=== PATIENT | female | born 1990 | race Caucasian/White ===

== ENCOUNTER 2016-04-03 | Emergency (ER) | payer OTHER | END 2016-04-03 07:27 | disposition home or self-care (01) ==

== ENCOUNTER 2017-12-08 21:38 | Emergency (ER) | payer OTHER ==
[2017-12-08] MEDS ORDERED: LIDOCAINE 2% 10 ML MDV SUBQ STA (21:58)
--- NOTE | 2017-12-08 22:14 | ED Physician Documentation ---
PD HPI UPPER EXT INJURY - Stated complaint Stated Complaint: R HAND LAC - Chief complaint Chief Complaint: Laceration - History obtained from History obtained from: Patient - History of Present Illness Location: Right, Finger (4th) Where injury occurred: Work Timing - onset: How many hours ago (1) Timing - duration: Hours (1) Timing - details: Abrupt onset Pain level max: 7 Pain level now: 7 Improved by: Rest, Ice, Immobilization Worsened by: Moving, Palpating Associated symptoms: Swelling, Discolored (ecchymosis). No: Weakness, Numbness, Tingling - Additonal information Additional information: Patient states she is wearing a ring on her right fourth digit when it became caught on a bolt at work and broke the ring off of her finger. Tetanus is up-to-date Review of Systems : denies: Now EGA Skin: denies: Rash Musculoskeletal: denies: Neck pain, Back pain Neurologic: denies: Headache PD PAST MEDICAL HISTORY - Past Medical History Past Medical History: No Cardiovascular: None Respiratory: None Neuro: None Endocrine/Autoimmune: None GI: None GERIATRIC PERSONAL CARE AIDE: None : None HEENT: None Psych: None Musculoskeletal: None Derm: None - Past Surgical History Past Surgical History: Yes General: Appendectomy HEENT: Tonsil/Adenoidectomy - Present Medications Home Medications: Ambulatory Orders Medication Instructions Recorded Confirmed cephALEXin [Cephalexin] 500 mg PO TID #20 tablet 04/03/16 - Allergies Allergies/Adverse Reactions: Allergies Allergy/AdvReac Type Severity Reaction Status Date / Time No Known Drug Allergies Allergy Verified 12/08/17 21:45 - Social History Does the pt smoke?: Yes Smoking Status: Current every day smoker Does the pt drink ETOH?: Yes Does the pt have substance abuse?: No - Immunizations Immunizations are current?: Yes - POLST Patient has POLST: No PD ED PE NORMAL - Vitals Vital signs reviewed: Yes - General General: Alert and oriented X 3, No acute distress - Derm Derm: Warm and dry - Extremities Extremities: Other (Right fourth digit - Swelling and tenderness over the proximal phalanx of the right fourth digit. Neurovascularly intact. 2 small abrasions present.) - Neuro Neuro: Alert and oriented X 3 - Psych Psych: Normal mood, Normal affect Results - Vitals Vitals: Vital Signs - 24 hr 12/08/17 21:41 Temperature 36.4 C L Heart Rate 70 Respiratory 16 Rate Blood Pressure 147/96 H O2 Saturation 100 Oxygen O2 Source Room air - Rads (name of study) R 4th digit Radiology: Prelim report reviewed, EMP read contemporaneously, See rad report (Soft tissue swelling without fracture or foreign body) PD MEDICAL DECISION MAKING - ED course Complexity details: reviewed results, re-evaluated patient, considered differential, d/w patient ED course: Patient is a 27-year-old female with a right fourth digit contusion and abrasion. No lacerations to repair. Wounds were cleansed and bandaged. Placed in a finger splint for comfort. Will follow up with her doctor. No acute findings on x-rays. No evidence of tendon injury. Tendon was tested against resistance. Patient counseled regarding signs and symptoms for which I believe and urgent re-evaluation would be necessary. Patient with good understanding of and agreement to plan and is comfortable going home at this time This document was made in part using voice recognition software. While efforts are made to proofread this document, sound alike and grammatical errors may occur. - Sepsis Event Vital Signs: Vital Signs - 24 hr 12/08/17 21:41 Temperature 36.4 C L Heart Rate 70 Respiratory 16 Rate Blood Pressure 147/96 H O2 Saturation 100 Oxygen O2 Source Room air Departure - Departure Disposition: 01 Home, Self Care Clinical Impression: Finger contusion Qualifiers: Encounter type: initial encounter Finger: ring finger Damage to nail status: without damage Laterality: right Qualified Code(s): S60.041A - Contusion of right ring finger without damage to nail, initial encounter Finger abrasion Qualifiers: Encounter type: initial encounter Qualified Code(s): S60.419A - Abrasion of unspecified finger, initial encounter Condition: Good Instructions: ED Contusion Finger Follow-Up: your,doctor in 1 week [Other] Comments: Return if you worsen. Wear the splint for the next 2-3 days as this will help with your pain. You may use Motrin or Tylenol as needed for pain. Keep the wound clean
--- NOTE | 2017-12-08 22:35 | XRAY Report ---
Reason: 4th digit, ring injury Procedure Date: 12/08/2017 Accession Number: [id number] / [id number] Procedure: XR - Finger(s) RT CPT Code: FULL RESULT: EXAM: RIGHT FOURTH DIGIT RADIOGRAPHY EXAM DATE: 12/08/2017 10:10 PM. CLINICAL HISTORY: 4th digit, ring injury. COMPARISON: None. TECHNIQUE: 3 views. FINDINGS: Bones: Normal. No fracture or bone lesion. Joints: Normal. No subluxations. Soft Tissues: Soft tissue swelling. No radiopaque foreign body in the soft tissues. IMPRESSION: Soft tissue swelling, but no evidence of fracture or radiopaque foreign body. [facility]
[2017-12-08 22:44] VITALS: BP 124/79
== END 2017-12-08 22:44 | disposition home or self-care (01) ==
LOC: ED 21:38
DX: S60.041A Contusion of right ring finger without damage to nail, initial encounter (principal); S60.414A Abrasion of right ring finger, initial encounter; F17.200 Nicotine dependence, unspecified, uncomplicated; W31.9XXA Contact with unspecified machinery, initial encounter; Y93.89 Activity, other specified; Y99.1 Military activity
CPT/HCPCS: 29130; 73140; 99282; 99283

== ENCOUNTER 2018-04-24 12:46 | Outpatient (CLI) | payer OTHER ==
--- NOTE | 2018-04-25 16:45 | MRI Report ---
Reason: STIFFNESS OF RIGHT SHOULDER, OTHER SYMPTOMS SIGN Procedure Date: 04/24/2018 Accession Number: [id number] / [id number] Procedure: MRI - Shoulder RT W/O CPT Code: FULL RESULT: EXAM: RIGHT SHOULDER MRI WITHOUT CONTRAST EXAM DATE: 04/24/2018 01:13 PM. CLINICAL HISTORY: STIFFNESS OF RIGHT SHOULDER, OTHER SYMPTOMS SIGN. COMPARISON: None. TECHNIQUE: Multiplanar, multisequence T1-weighted and fluid-sensitive sequences of the shoulder without contrast. Other: None. FINDINGS: Acromioclavicular Region: The acromion is type II. The acromioclavicular joint is unremarkable. The coracoacromial and coracoclavicular ligaments are intact. Mild subacromial/subdeltoid bursal fluid with synovitis/debris. Glenohumeral Region: No subluxation. Small joint effusion with synovitis. Minimal shallow partial thickness cartilage loss centrally. The glenohumeral ligaments and joint capsule are unremarkable. Bone Marrow: T1 isointense signal throughout the osseous structures. No fracture. Moderate bone marrow edema and cystic changes at the greater tuberosity, most prominent anteriorly. Labrum: Mild blunting and irregularity of the posterior superior aspect. Likely normal variant sulcus extending deep to the biceps anchor. Partial-thickness tear posterior inferior aspect. Musculature/Rotator Cuff: Moderate supraspinatus tendinopathy. Deep partial bursal surface tear anterior insertion measuring 0.5 x 0.9 cm. No definite extension to the articular surface. Mild infraspinatus tendinopathy. Subtle partial thickness intrasubstance tear at the posterior insertion. Teres minor tendon intact. Mild subscapularis tendinopathy. Subtle shallow partial-thickness undersurface tear superior insertion. No fatty atrophy. Mild edema at the supraspinatus and to a lesser extent infraspinatus myotendinous junctions. Mild edema along the deep fibers anterior deltoid. Biceps Tendon: The long head of the biceps tendon and biceps natalya are intact. Large amount of excess fluid in the tendon sheath. Other: The subcutaneous tissues are unremarkable. Multiple enlarged lymph nodes partially visualized in the axilla. The short axis diameters measure up to at least 1.5 cm. IMPRESSION: 1. Moderate supraspinatus tendinopathy with deep partial thickness bursal surface tear anterior insertion. 2. Bone marrow edema in the adjacent greater tuberosity and overlying subacromial/subdeltoid bursitis and deltoid edema. These may be reactive to acute tear. Superimposed inflammatory or infectious process not excluded. Recommend clinical correlate with laboratory values. 3. Mild infraspinatus and subscapularis tendinopathy with subtle partial thickness tears. 4. Partial thickness tear posterior inferior labrum. 5. Small glenohumeral joint effusion with synovitis. 6. Severe biceps tenosynovitis. 7. T1 isointense to hyperintense signal throughout the osseous structures. This may be due to patient age and/or reconversion which can be seen in the setting of anemia or other low oxygen state such as smoking. Infiltrative process thought less likely although not completely excluded. Recommend correlate with laboratory values. 8. Enlarged lymph nodes partially visualized in the axilla. These may be reactive to infectious, inflammatory, or neoplastic process. [facility] MUSCULOSKELETAL RADIOLOGY SECTION
== END 2018-04-24 12:47 | disposition home or self-care (01) ==
LOC: DI 12:46
PROVIDERS: ATTEND Orthopaedic Surgery
DX: M25.611 Stiffness of right shoulder, not elsewhere classified (principal); R29.898 Other symptoms and signs involving the musculoskeletal system; S43.491A Other sprain of right shoulder joint, initial encounter; M75.101 Unspecified rotator cuff tear or rupture of right shoulder, not specified as traumatic; S46.811A Strain of other muscles, fascia and tendons at shoulder and upper arm level, right arm, initial encounter; M75.51 Bursitis of right shoulder; M75.21 Bicipital tendinitis, right shoulder; M65.811 Other synovitis and tenosynovitis, right shoulder; R59.0 Localized enlarged lymph nodes

== ENCOUNTER 2019-09-14 23:22 | Emergency (ER) | payer OTHER ==
--- NOTE | 2019-09-14 23:25 | ED Physician Documentation ---
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 with a history of impetigo presents with honey crusted lesion to the right side of her face.Denies any visual loss or fevers or headaches.) Review of Systems Constitutional: reports: Reviewed and negative Eyes: reports: Reviewed and negative Ears: reports: Reviewed and negative Nose: reports: Reviewed and negative Throat: reports: Reviewed and negative Cardiac: reports: Reviewed and negative Respiratory: reports: Reviewed and negative GI: reports: Reviewed and negative : reports: Reviewed and negative Skin: reports: Other (Impetigo on the face) Musculoskeletal: reports: Reviewed and negative Neurologic: reports: Reviewed and negative Psychiatric: reports: Reviewed and negative Endocrine: reports: Reviewed and negative Immunocompromised: reports: Reviewed and negative PD PAST MEDICAL HISTORY - Past Medical History Cardiovascular: None Respiratory: None Neuro: None Endocrine/Autoimmune: None GI: None 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 09/15/19 - Allergies Allergies/Adverse Reactions: Allergies Allergy/AdvReac Type Severity Reaction Status Date / Time No Known Drug Allergies Allergy Verified 09/14/19 23:51 - Social History Does the pt smoke?: Yes Smoking Status: Current every day smoker Does the pt drink ETOH?: Yes Does the pt have substance abuse?: No - Immunizations Immunizations are current?: Yes - POLST Patient has POLST: No PD ED PE NORMAL - Vitals Vital signs reviewed: Yes - General General: Alert and oriented X 3, No acute distress, Well developed/nourished - HEENT HEENT: PERRL, Other (There is a 2 cm area of honey crusted lesion below the right eye involving the right cheek with a small surrounding area of erythema, No fluctuance or induration.) - Neck Neck: Supple, no meningeal sign, No adenopathy - Cardiac Cardiac: RRR, No murmur - Respiratory Respiratory: Clear bilaterally - Abdomen Abdomen: Normal bowel sounds, Soft, Non tender, Non distended - Derm Derm: Warm and dry - Extremities Extremities: No deformity - Neuro Neuro: Alert and oriented X 3 - Psych Psych: Normal mood, Normal affect Results - Vitals Vitals: Vital Signs - 24 hr 09/14/19 23:30 Temperature 36.7 C Heart Rate 99 Respiratory 16 Rate Blood Pressure 125/83 H O2 Saturation 99 Oxygen O2 Source Room air PD MEDICAL DECISION MAKING - ED course Complexity details: considered differential (Facial cellulitis, periorbital cellulitis, impetigo. Patient will be treated with oral Keflex and topical mupirocin and follow-up with medical at [facility] would be this morning.) Departure - Departure Disposition: 01 Home, Self Care Clinical Impression: Impetigo Cellulitis Qualifiers: Site of cellulitis: face Qualified Code(s): L03.211 - Cellulitis of face Condition: Stable Instructions: Impetigo, ED Cellulitis Facial Follow-Up: your, doctor [Other] - 09/15/19 Prescriptions: Cephalexin [Keflex] 500 mg PO QID 10 Days #40 capsule Mupirocin 22 gm TP BID #1 oint...g. Comments: Follow-up with medical today as previously scheduled. Take Keflex as directed. Use mupirocin as directed. Discharge Date/Time: 09/15/19 00:24
[2019-09-14 23:51] VITALS: BP 125/83
[2019-09-15] MEDS ORDERED: cephALEXin 250 MG CAPSULE PO STA (00:13)
[2019-09-15] MEDS ORDERED: MUPIROCIN 2% OINT 1 GM TOP STA (00:13)
== END 2019-09-15 00:24 | disposition home or self-care (01) ==
LOC: ED 23:22
DX: L01.00 Impetigo, unspecified (principal); L03.211 Cellulitis of face; F17.200 Nicotine dependence, unspecified, uncomplicated
CPT/HCPCS: 99282; 99283; A9270